=== PATIENT | female | born 1955 | race Caucasian/White ===

== ENCOUNTER 2020-10-04 03:40 | Inpatient (IN) | payer OTHER, SELFPAY ==
[~2020-10-04] VITALS: Ht 165.1 cm; Wt 138.3 kg
[2020-10-04 03:45] VITALS: BP 145/90
--- NOTE | 2020-10-04 03:56 | NUR ---
PT AMBULATED TO ER BED 2
--- NOTE | 2020-10-04 04:00 | NUR ---
RECEIVED PT IN BED 2 WITH C/O PALPITATIONS AND JAW PAIN X A FEW HOURS. WAS AT HOME WHEN COMPLAINT STARTED AND WAS NON PREVOKED. ATTACHED TO CM = ST [id number] WITHOUT ECTOPY. SKIN IS WARM AND DRY
[2020-10-04] MEDS ORDERED: NACL 0.9% 1,000 ML IV ONE (04:25)
[2020-10-04] MEDS ORDERED: ASPIRIN 325 MG TAB PO ONE (04:25)
[2020-10-04] MEDS ORDERED: METOPROLOL 5 MG/5 ML VIAL IVP ONE (04:25)
--- NOTE | 2020-10-04 04:40 | NUR ---
SL RSTABLISHED FOLLOWED BY MEDS ORDERED
[2020-10-04] MEDS ORDERED: DILTIAZEM 25 MG/5 ML VIAL IVP ONE (05:25)
--- NOTE | 2020-10-04 06:30 | NUR ---
COLLECTED BLOOD LABS AND WALKED THEM OVER TO LAB AT THIS TIME.
--- NOTE | 2020-10-04 06:35 | NUR ---
EMT AT BEDSIDE PERFORMING EKG
[2020-10-04 06:44] LABS: BASOPHILS # (AUTO) 0.1 K/uL (0.00-0.22); BASOPHILS % (AUTO) 0.9 % (0.0-2.0); EOSINOPHILS # (AUTO) 0.2 K/uL (0-0.4); EOSINOPHILS % (AUTO) 1.7 % (0.0-4.0); HEMATOCRIT 45.4 % (36-48); HEMOGLOBIN 15.1 g/dL (12.0-16.0); LYMPHOCYTES # (AUTO) 2.9 K/uL (2.5-16.5); LYMPHOCYTES % (AUTO) 21.3 % (20.5-51.1); MEAN CORPUSCULAR HEMOGLOBIN 30 pg (27-31); MEAN CORPUSCULAR HGB CONC 33 g/dL (33-37); MEAN CORPUSCULAR VOLUME 90.7 fL (80-94); MONOCYTES # (AUTO) 0.9 K/uL (0.8-1.0); MONOCYTES % (AUTO) 6.3 % (1.7-9.3); NEUTROPHILS # (AUTO) 9.6 K/uL (1.8-7.7); NEUTROPHILS % (AUTO) 69.8 % (42.2-75.2); PLATELET COUNT (AUTO) 210 K/uL (140-450); RED CELL DISTRIBUTION WIDTH 14.9 % (11.6-13.7); WHITE BLOOD COUNT (AUTO) 13.8 K/uL (4.8-10.8)
--- NOTE | 2020-10-04 06:49 | NUR ---
HR MUCH IMPROVED 100-110
[2020-10-04] MEDS ORDERED: DILTIAZEM 125 MG in DEXTROSE 5% 100 ML IV ONE (07:05)
[2020-10-04 07:08] LABS: ALBUMIN 3.3 g/dL (3.4-5.0); ANION GAP 13.4 (8-16); ASPARTATE AMINOTRANSFERASE 16 U/L (15-37); CARBON DIOXIDE 26.8 mmol/L (21-32); CHLORIDE 105 mmol/L (98-107); CREATININE 0.8 mg/dL (0.6-1.3); GFR ARICAN-AMERICAN 93 mL/min (>90); GLUCOSE 109 mg/dL (74-106); POTASSIUM 4.2 mmol/L (3.5-5.1); SODIUM SERUM 141 mmol/L (136-145); THYROID STIMULATING HORMONE 1.42 uIU/mL (0.34-3.74); TOTAL BILIRUBIN 0.3 mg/dL (0.0-1.0); UREA NITROGEN, BLOOD 19 mg/dL (7-18)
--- NOTE | 2020-10-04 07:20 | NUR ---
REPORT RECEIVED FROM ED HERNANDEZ, TRANSFER OF CARE AT THIS TIME
[2020-10-04] MEDS ORDERED: ONDANSETRON 4 MG/2 ML VIAL IM/IVP PRN (07:35)
[2020-10-04] MEDS ORDERED: ACETAMINOPHEN 325 MG TAB PO PRN (07:35)
[2020-10-04] MEDS ORDERED: HYDROcodone/APAP 7.5/325 MG 1 TAB PO PRN (07:35)
[2020-10-04] MEDS ORDERED: guaiFENesin DM 200/20 MG-10 ML 10 ML UDC PO PRN (07:35)
[2020-10-04] MEDS ORDERED: DOCUSATE SODIUM 100 MG GELCAP PO PRN (07:35)
[2020-10-04] MEDS ORDERED: ZOLPIDEM 5 MG TAB PO PRN (07:35)
[2020-10-04] MEDS ORDERED: POTASSIUM CHLORIDE 10 MEQ TABER PO PRN (07:35)
--- NOTE | 2020-10-04 07:38 | NUR ---
Shanta rojas in [facility] - 10/04/20 at 0738 by [facility] CALLED FOR LUANNE MCKENZIE, STATE THEY WILL BRING IT
[2020-10-04] MEDS: PANTOPRAZOLE 40 MG TABEC PO SCH (08:56)
--- NOTE | 2020-10-04 09:00 | NUR ---
Dr. Puga is evaluating the patient at bedside.
[2020-10-04 09:21] LABS: APPEARANCE,URINE CLEAR (CLEAR); BILIRUBIN,URINE NEGATIVE (NEGATIVE); BLOOD, URINE NEGATIVE (NEGATIVE); COLOR,URINE YELLOW (YELLOW); LEUKOCYTE ESTERASE ,URINE NEGATIVE (NEGATIVE); NITRITE, URINE NEGATIVE (NEGATIVE); PH,URINE 5.5 (5.0-9.0); UGLUCOSE NEGATIVE (NEGATIVE)
[2020-10-04 09:45] LABS: BARBITURATE, URINE NEGATIVE ng/ml (NEG <=200); BENZODIAZEPINE, URINE NEGATIVE ng/mL (NEG <=200); CANNABINOID, URINE POSITIVE ng/mL (NEG <=50); COCAINE, URINE NEGATIVE ng/mL (NEG <=300); OPIATE, URINE NEGATIVE ng/mL (NEG <=2000); PHENCYCLIDINE SCREEN,URINE NEGATIVE ng/mL (NEG <=25)
[2020-10-04] MEDS ORDERED: NITROGLYCERIN 0.4 MG TAB SL PRN (10:15)
[2020-10-04] MEDS: DILTIAZEM 30 MG TAB PO SCH ×3 (10:15→22:02)
--- NOTE | 2020-10-04 10:22 | NUR ---
BP 90/56, HR 80 - CARDIZEM DRIP STOPPED DUE TO PROTOCOL
--- NOTE | 2020-10-04 10:30 | NUR ---
PT ALERT AND AWAKE, BREATHING EVEN AND UNLABORED. NO DISTRESS NOTED.
[2020-10-04 10:52] LABS: PROTHROMBIN TIME 9.6 secs (10.8-13.4)
--- NOTE | 2020-10-04 11:16 | NUR ---
DR MANCUSO MADE AWARE CARDIZEM DRIP STOPPED EARLIER PER PROTOCOL, AND BP REMAINS LOW AT 94/53, HR 115.
--- NOTE | 2020-10-04 11:30 | NUR ---
PER DR JAMEE JAY TO [place] LUANNE MCKENZIE NOW. BP 99/38, HR 114
[2020-10-04 12:20] LABS: CHOL/HDL RATIO 5.6 (1-4.5); FREE T4 (FREE THYROXINE) 0.96 ng/dL (0.76-1.46); MAGNESIUM 2.2 mg/dL (1.8-2.4); PHOSPHORUS 3.9 mg/dL (2.5-4.9)
--- NOTE | 2020-10-04 12:30 | NUR ---
PT ALERT AND AWAKE, BREATHING EVEN AND UNLABORED. NO DISTRESS NOTED.
--- NOTE | 2020-10-04 12:56 | NUR ---
DR MANCUSO NOTIFIED HR IS NOW BACK INTO 130'S, BP 109/68.
--- NOTE | 2020-10-04 14:30 | NUR ---
PT ALERT AND AWAKE, BREATHING EVEN AND UNLABORED. NO DISTRESS NOTED.
--- NOTE | 2020-10-04 14:32 | NUR ---
DR MANCUSO MADE AWARE PT HR REMAINS IN 150'S, STATES TO PAGE DR JOHNSON. DR JOHNSON PAGED
[2020-10-04] MEDS ORDERED: METOPROLOL 5 MG/5 ML VIAL IV PRN (15:40)
--- NOTE | 2020-10-04 15:45 | NUR ---
MEDICATIONS ORDERED STATED THROUGH TELEPHONE ORDER BY DR JOHNSON. WAITING FOR PHARMACY TO VERIFY MEDICATIONS TO EMAR.
[2020-10-04] MEDS ORDERED: DIGOXIN 0.25 MG/ML AMP IV SCH (15:47)
[2020-10-04] MEDS: METOPROLOL 25 MG TAB PO SCH (16:01)
[2020-10-04] MEDS ORDERED: AMIODARONE 150 MG in DEXTROSE 5% 100 ML IV SCH (16:10)
[2020-10-04] MEDS ORDERED: AMIODARONE 450 MG in DEXTROSE 5% 250 ML IV SCH (16:20)
[2020-10-04] MEDS ORDERED: AMIODARONE 150 MG/3 ML VIAL IV ONE (16:24)
--- NOTE | 2020-10-04 16:30 | NUR ---
PT ALERT AND AWAKE, BREATHING EVEN AND UNLABORED. NO DISTRESS NOTED.
[2020-10-04] MEDS ORDERED: CRUSHER, PILL MC ONE (17:36)
[2020-10-04] MEDS: ATORVASTATIN 20 MG TAB PO SCH (17:39)
--- NOTE | 2020-10-04 19:15 | NUR ---
Report received from DAVID Thomson for continuation of care.
--- NOTE | 2020-10-04 19:30 | NUR ---
Pt in bed, locked and in lowest position, hob elevated. VSS. No acute distress noted.
--- NOTE | 2020-10-04 19:30 | NUR ---
SEE AMIODARONE DRIP IV SPREADSHEET FOR UPDATED VITAL SIGNS.
--- NOTE | 2020-10-04 21:00 | NUR ---
Pt ambulated to restroom w/ steady gait.
--- NOTE | 2020-10-04 21:10 | NUR ---
Pt c/o of pain at 20G Right hand. IV removed, catheter intact and site benign. Applied folded 4x4 gauze and tape to stop bleeding. Warm compress applied to pt IV site.
[2020-10-04] MEDS: DIGOXIN 0.25 MG/ML AMP IV SCH (22:02)
--- NOTE | 2020-10-04 22:04 | NUR ---
PER DR. MANCUSO UPGRADE PT STATUS TO ICU DUE TO AMIODORONE DRIP.
--- NOTE | 2020-10-04 22:15 | NUR ---
pt resting in bed, locked and in lowest position, hob elevated, side rail x 2. VSS. no acute distress noted.
--- NOTE | 2020-10-04 23:10 | NUR ---
pt repositioned , vss. no acute distress noted.
--- NOTE | 2020-10-04 23:30 | NUR ---
amiodarone drip decreased per parameters to 0.5mg/hr Addendum: 10/05/20 at 0120 by GABY amiodarone drip decreased per parameters to 0.5mg/min
[2020-10-05] VITALS (22 sets, daily range): BP systolic 86–128; BP diastolic 50–81
--- NOTE | 2020-10-05 00:30 | NUR ---
pt resting in bed, locked and in lowest position ,HOB elevated, side rail x 2 for pt safety. VSS. No acute distress noted.
--- NOTE | 2020-10-05 01:15 | NUR ---
pt ambulated to restroom w/ steady gait.
--- NOTE | 2020-10-05 01:39 | NUR ---
Patient will be admitted to care of Dr. Puga. Admited to ICU. Will go to room ICU Rm 8. Belongings list completed. Report to DAVID Galindo.ETA of transfer to room 10-15 min.
--- NOTE | 2020-10-05 02:00 | NUR ---
PT TRANSFERRED TO ROOM 8 IN ICU . RECEIVING NURSE Millicent BADILLO RN AT BEDSIDE W/ PT.
--- NOTE | 2020-10-05 02:10 | NUR ---
RECEIVED PT FROM ER AT THIS TIME. PT AWAKE, ALERT AND ORIENTED X4, AND COOPERATIVE. ABLE TO AMBULATE INDEPENDENTLY. PUPILS 3MM, PERRL. DENIES PAIN UPON QUESTIONING. DENIES SOB OR CX DISCOMFORT. SB ON MONITOR, HR @ 56 BPM. +S1, S2 UPON AUSCULTATION. AMIODARONE DRIP INFUSING @ 17 MLS/HR. PERIPHERAL IV TO LT WRIST DC'D AT THIS TIME D/T PT C/O IRRITATION TO SITE. NEW IV INITIATED TO LFA, 20 G, SALINE-LOCKED. LUNGS CLEAR THROUGHOUT. ABD SOFT, LARGE, NON-DISTENDED, NON-TENDER. BOWEL SOUNDS ACTIVE X4. PERIPHERAL PULSES PALPABLE BILATERALLY. TURGOR WITHIN 3 SEC. NO EDEMA NOTED. CAP REFILL WITHIN 3 SEC. SNACKS PROVIDED PER PT REQUEST. SAFETY PRECAUTIONS IN PLACE WITH BED LOW AND LOCKED. WILL CONT TO MONITOR FOR CHANGES.
[2020-10-05] MEDS: METOPROLOL 25 MG TAB PO SCH ×3 (04:00→20:31)
[2020-10-05] MEDS: DILTIAZEM 30 MG TAB PO SCH ×3 (04:09→20:31)
[2020-10-05] MEDS: DIGOXIN 0.25 MG/ML AMP IV SCH (04:10)
[2020-10-05 06:22] LABS: BASOPHILS # (AUTO) 0.1 K/uL (0.00-0.22); BASOPHILS % (AUTO) 0.8 % (0.0-2.0); EOSINOPHILS # (AUTO) 0.2 K/uL (0-0.4); HEMATOCRIT 42.6 % (36-48); HEMOGLOBIN 14.1 g/dL (12.0-16.0); LYMPHOCYTES # (AUTO) 3.1 K/uL (2.5-16.5); LYMPHOCYTES % (AUTO) 31.4 % (20.5-51.1); MEAN CORPUSCULAR HEMOGLOBIN 30 pg (27-31); MEAN CORPUSCULAR HGB CONC 33 g/dL (33-37); MEAN CORPUSCULAR VOLUME 90.5 fL (80-94); MONOCYTES # (AUTO) 0.5 K/uL (0.8-1.0); MONOCYTES % (AUTO) 4.8 % (1.7-9.3); PLATELET COUNT (AUTO) 218 K/uL (140-450); RED BLOOD CELL COUNT(AUTO) 4.71 MIL/uL (4.20-5.40); RED CELL DISTRIBUTION WIDTH 14.9 % (11.6-13.7); WHITE BLOOD COUNT (AUTO) 9.8 K/uL (4.8-10.8)
[2020-10-05 06:30] LABS: ANION GAP 12.1 (8-16); CARBON DIOXIDE 25.7 mmol/L (21-32); POTASSIUM 3.8 mmol/L (3.5-5.1)
--- NOTE | 2020-10-05 07:20 | NUR ---
REPORT GIVEN TO DAYSHIFT NURSE, AT WINDOW, FOR CONTINUITY OF CARE. VSS. IV PATENT.
--- NOTE | 2020-10-05 07:25 | NUR ---
RECEIVED REPORT FROM ABY. PT. AWAKE ALERT FOLLOW COMMAND, HEP LOCK ON RT AC , ON ROOM AIR.
--- NOTE | 2020-10-05 07:27 | NUR ---
LEFT MESSAGE FOR DR MANCUSO R/T PTS BRADYCARDIA. AMIODARONE DRIP HELD. AWAITING CALL BACK, ONCOMING SHIFT AWARE.
--- NOTE | 2020-10-05 08:00 | NUR ---
OOB TOBATH ROOM.
[2020-10-05] MEDS: ECOTRIN 81 MG TABEC PO SCH (08:55)
[2020-10-05] MEDS: PANTOPRAZOLE 40 MG TABEC PO SCH (08:55)
[2020-10-05] MEDS: lisinopriL 5 MG TAB PO SCH (08:55)
--- NOTE | 2020-10-05 09:30 | NUR ---
SEEN BY JAMEE HARTLEY ORDER RECEIVED.
--- NOTE | 2020-10-05 10:08 | NUR ---
PATIENT HAS BEEN SCREENED AND CATEGORIZED HIGH NUTRITION RISK. PATIENT WILL BE SEEN WITHIN 1-2 DAYS OF ADMISSION. 10/06/[address]
--- NOTE | 2020-10-05 14:09 | NUR ---
DC PLANNING: CALLED [facility] SPOKE WITH ARIS NOTIFIED HER THAT PATIENT IS STABLE FOR TRANSFER AND UPDATED HER CLINICAL. PER ARIS THEY ARE AT FULL CAPACITY AND NOT ACCEPTING ANY INPATIENT TRANSFER AT THIS TIME AND TO FAX ALL CLINICALS . FAXED CLINICALS TO [phone] . MARTINEZ TO FOLLOW Addendum: 10/06/20 at 1230 by Leslye Holly CM CONTACTED MARTINEZ DE LUNA OF [facility], ASKING IF THE PATIENT WILL BE DC'D. INFORMED HER THAT THE PATIENT JUST GOTDOWNGRADED FROM ICU AND POSSIBLE DC LATER TODAY OR TOMORROW. SHE STATED TO LET HER KNOW ONCE THERE IS ANY DC NEEDS. WILL FOLLOW UP. Addendum: 10/06/20 at 123 by Leslye Holly CM PHONE NUMBER FOR MARTINEZ DE LUNA - [phone].
[2020-10-05] MEDS: ATORVASTATIN 20 MG TAB PO SCH (17:00)
--- NOTE | 2020-10-05 17:00 | NUR ---
PATIENT REFUSE LIPITOR SHE SAID SHE HAS TERRIBLE MUSCLE WHEN SHE TAKE THEM.
--- NOTE | 2020-10-05 18:00 | NUR ---
CARDIAC DIET TAKEN WITH OUT NOUSEA AND VOMIT.
--- NOTE | 2020-10-05 19:30 | NUR ---
CONDITION STABLE REPORT GIVE TO SHAWN HERNANDEZ.
--- NOTE | 2020-10-05 20:00 | NUR ---
REPORT OBTAINED FROM MOLLY ROCHA RN. PATIENT IS AAOX4, SR ON THE MONITOR, SALINE LOCK ON RAC PATENT AND INTACT, ON ROOM AIR, RESPIRATIONS NORMAL, AMBULATES TO THE BATHROOM, DENIES PAIN, CALL LIGHT WITHIN REACH.
--- NOTE | 2020-10-05 22:00 | NUR ---
PATIENT IN BED, SR ON THE MONITOR, CALL LIGHT WITHIN REACH, DENIES PAIN.
[2020-10-06] VITALS (12 sets, daily range): BP systolic 79–141; BP diastolic 48–68
--- NOTE | 2020-10-06 | NUR ---
ASLEEP, CALL LIGHT WITHIN REACH, NO RESPIRATORY DISTRESS.
--- NOTE | 2020-10-06 02:00 | NUR ---
PATIENT'S HR FLUCTUATING FROM 58-63, AWAKE AT THIS TIME, WATER GIVEN, DENIES PAIN.
--- NOTE | 2020-10-06 04:00 | NUR ---
SLEEPING, CALL LIGHT WITHIN REACH, DENIES PAIN.
[2020-10-06] MEDS: DILTIAZEM 30 MG TAB PO SCH (05:00)
--- NOTE | 2020-10-06 06:23 | NUR ---
AM CARE PROVIDED, HR FLUCTUATES FROM HIGH 50'S TO 60'S, DENIES PAIN.
[2020-10-06 06:47] LABS: ANION GAP 16.6 (8-16); CARBON DIOXIDE 24.1 mmol/L (21-32); CREATININE 0.6 mg/dL (0.6-1.3); POTASSIUM 5.7 mmol/L (3.5-5.1)
[2020-10-06] MEDS: ECOTRIN 81 MG TABEC PO SCH (08:42)
[2020-10-06] MEDS: PANTOPRAZOLE 40 MG TABEC PO SCH (08:43)
[2020-10-06] MEDS: METOPROLOL 25 MG TAB PO SCH ×2 (09:00→21:18)
[2020-10-06] MEDS: lisinopriL 5 MG TAB PO SCH (09:00)
[2020-10-06] MEDS ORDERED: SODIUM ZIRCONIUM CYCLOSILICATE 10 GM POWD.PACK PO SCH (10:30)
[2020-10-06] MEDS ORDERED: CALCIUM GLUCONATE 10% 1,000 MG in NACL 0.9% 50 ML IV SCH (11:00)
[2020-10-06 12:11] LABS: BASOPHILS # (AUTO) 0.1 K/uL (0.00-0.22); BASOPHILS % (AUTO) 1.1 % (0.0-2.0); EOSINOPHILS # (AUTO) 0.2 K/uL (0-0.4); EOSINOPHILS % (AUTO) 2.3 % (0.0-4.0); HEMATOCRIT 41.7 % (36-48); HEMOGLOBIN 13.8 g/dL (12.0-16.0); LYMPHOCYTES # (AUTO) 2.3 K/uL (2.5-16.5); LYMPHOCYTES % (AUTO) 29.3 % (20.5-51.1); MEAN CORPUSCULAR HEMOGLOBIN 30 pg (27-31); MEAN CORPUSCULAR HGB CONC 33 g/dL (33-37); MEAN CORPUSCULAR VOLUME 90.6 fL (80-94); MONOCYTES # (AUTO) 0.6 K/uL (0.8-1.0); MONOCYTES % (AUTO) 8.1 % (1.7-9.3); NEUTROPHILS # (AUTO) 4.6 K/uL (1.8-7.7); NEUTROPHILS % (AUTO) 59.2 % (42.2-75.2); PLATELET COUNT (AUTO) 205 K/uL (140-450); RED CELL DISTRIBUTION WIDTH 14.8 % (11.6-13.7); WHITE BLOOD COUNT (AUTO) 7.8 K/uL (4.8-10.8)
--- NOTE | 2020-10-06 14:20 | NUR ---
TELEPHONE REPORT GIVEN TO TELE NURSE JANELLE HERNANDEZ
--- NOTE | 2020-10-06 15:55 | NUR ---
10/06/2020 RD INITIAL ASSESSMENT COMPLETED PLEASE REFER TO NUTRITION ASSESSMENT UNDER CARE ACTIVITY FOR ESTIMATED NUTRITIONAL NEEDS. CONTINUE CURRENT CARDIAC DIET ORDERED RD TO FOLLOW-UP IN 3-5 DAYS PATIENT IS MODERATE RISK. ERICKA KING RD
--- NOTE | 2020-10-06 16:40 | NUR ---
PT TRANSFERRED TO TELE ROOM 123B. PT IN STABLE CONDITION.
--- NOTE | 2020-10-06 19:23 | NUR ---
GAVE REPORT TO WEED CONTROL INSPECTOR NURSE FOR CONTINUITY OF CARE. PATIENT IN STABLE CONDITION.
[2020-10-07 00:01] VITALS: BP 128/62
--- NOTE | 2020-10-07 01:27 | NUR ---
RECIEVED PATIENT IN BED, DENIED CP, ON ROOM AIR, NO DISTRESS NOTED, PM MEDS GIVEN. VSS, WILL CONTINUE TO MONITOR.
[2020-10-07 05:32] LABS: BASOPHILS # (AUTO) 0.1 K/uL (0.00-0.22); BASOPHILS % (AUTO) 0.9 % (0.0-2.0); EOSINOPHILS # (AUTO) 0.3 K/uL (0-0.4); EOSINOPHILS % (AUTO) 3.1 % (0.0-4.0); HEMATOCRIT 41.8 % (36-48); LYMPHOCYTES # (AUTO) 3.1 K/uL (2.5-16.5); LYMPHOCYTES % (AUTO) 36.4 % (20.5-51.1); MEAN CORPUSCULAR HEMOGLOBIN 30 pg (27-31); MEAN CORPUSCULAR HGB CONC 34 g/dL (33-37); MEAN CORPUSCULAR VOLUME 90.3 fL (80-94); MONOCYTES # (AUTO) 0.6 K/uL (0.8-1.0); MONOCYTES % (AUTO) 6.7 % (1.7-9.3); NEUTROPHILS # (AUTO) 4.5 K/uL (1.8-7.7); NEUTROPHILS % (AUTO) 52.9 % (42.2-75.2); PLATELET COUNT (AUTO) 213 K/uL (140-450); RED BLOOD CELL COUNT(AUTO) 4.63 MIL/uL (4.20-5.40); RED CELL DISTRIBUTION WIDTH 14.7 % (11.6-13.7); WHITE BLOOD COUNT (AUTO) 8.5 K/uL (4.8-10.8)
[2020-10-07 05:56] LABS: CARBON DIOXIDE 29.2 mmol/L (21-32); CREATININE 0.9 mg/dL (0.6-1.3); POTASSIUM 4.2 mmol/L (3.5-5.1)
[2020-10-07 06:00] VITALS: BP 109/57
[2020-10-07 08:00] VITALS: BP 122/52
[2020-10-07] MEDS: ECOTRIN 81 MG TABEC PO SCH (08:58)
[2020-10-07] MEDS: PANTOPRAZOLE 40 MG TABEC PO SCH (08:58)
[2020-10-07] MEDS: METOPROLOL 25 MG TAB PO SCH (08:59)
--- NOTE | 2020-10-07 09:01 | NUR ---
SCHEDULED MEDICATIONS GIVEN, EDUCATION PROVIDED. METOPROLOL HOLD FOR HR 58. DENIES PAIN OR DISCOMFORT. SAFETY MEASURES IN PLACE. WILL CONTINUE TO MONITOR.
[2020-10-07] MEDS ORDERED: ASPI-1856 PO (10:38)
[2020-10-07] MEDS ORDERED: METO25TA PO (10:38)
--- NOTE | 2020-10-07 11:01 | NUR ---
INFORMED PATIENT THAT SHE IS GOING HOME TODAY, PATIENT STATED THAT SHE WAS HAPPY ABOUT IT. NO ACUTE DISTRESS NOTED.
[2020-10-07] MEDS ORDERED: FLU VACCINE QS2020-21 0.5 ML SYR IMVAC PRN (11:25)
--- NOTE | 2020-10-07 11:40 | NUR ---
FLU VACCINE GIVEN, PATIENT TOLERATED WELL. DISCHARGE INSTRUCTIONS PROVIDED. VERBALIZED UNDERSTANDING.
--- NOTE | 2020-10-07 12:00 | NUR ---
DISCHARGE PAPER SIGNED. DISCHARGE PROTOCOL FOLLOWED. WALKED PATIENT OUT OF THE HOSPITAL, PATIENT IN STABLE CONDITION.
== END 2020-10-07 12:00 | disposition home or self-care (01) | DRG 309 ==
LOC: MED 03:40 → MTU 10:11 → MIC 23:49 → MTU 10-06 16:42
PROVIDERS: ADMIT Family Medicine; ATTEND Family Medicine
DX: I48.92 Unspecified atrial flutter (principal); E44.1 Mild protein-calorie malnutrition; Z68.43 Body mass index [BMI] 50.0-59.9, adult; D72.829 Elevated white blood cell count, unspecified; E86.0 Dehydration; Z96.653 Presence of artificial knee joint, bilateral; E66.9 Obesity, unspecified; E87.6 Hypokalemia; Z20.828 Contact with and (suspected) exposure to other viral communicable diseases; Z90.49 Acquired absence of other specified parts of digestive tract; Z90.710 Acquired absence of both cervix and uterus; Z82.49 Family history of ischemic heart disease and other diseases of the circulatory system
CPT/HCPCS: 36415; 71045; 80048; 80053; 80305; 81003; 82150; 83036; 83690; 83735; 83880; 84100; 84436; 84439; 84443; 84479; 84484; 85025; 85610; 85730; 93005; 96361; 96365; 96375; 99291; 99292; G0482; J0282; J0610; J1160; J3490; J7060

== ENCOUNTER 2020-10-26 06:25 | Inpatient (IN) | payer OTHER, SELFPAY ==
[~2020-10-26] VITALS: Ht 165.1 cm; Wt 135.2 kg
[~2020-10-26 06:25] MED LIST: ASPI-1856 PO; METO25TA PO
[2020-10-26 06:29] VITALS: BP 149/79
[2020-10-26] MEDS ORDERED: ONDANSETRON 4 MG/2 ML VIAL IVP ONE (07:35)
[2020-10-26] MEDS ORDERED: KETOROLAC 15 MG/ML VIAL IVP ONE (07:35)
[2020-10-26 08:26] LABS: BASOPHILS # (AUTO) 0.1 K/uL (0.00-0.22); BASOPHILS % (AUTO) 0.5 % (0.0-2.0); EOSINOPHILS # (AUTO) 0.2 K/uL (0-0.4); EOSINOPHILS % (AUTO) 1.7 % (0.0-4.0); HEMOGLOBIN 14.5 g/dL (12.0-16.0); LYMPHOCYTES # (AUTO) 2.1 K/uL (2.5-16.5); LYMPHOCYTES % (AUTO) 16.6 % (20.5-51.1); MEAN CORPUSCULAR HEMOGLOBIN 30 pg (27-31); MEAN CORPUSCULAR HGB CONC 33 g/dL (33-37); MEAN CORPUSCULAR VOLUME 90.7 fL (80-94); MONOCYTES # (AUTO) 0.8 K/uL (0.8-1.0); MONOCYTES % (AUTO) 6.2 % (1.7-9.3); NEUTROPHILS # (AUTO) 9.7 K/uL (1.8-7.7); PLATELET COUNT (AUTO) 217 K/uL (140-450); RED BLOOD CELL COUNT(AUTO) 4.86 MIL/uL (4.20-5.40); RED CELL DISTRIBUTION WIDTH 14.8 % (11.6-13.7); WHITE BLOOD COUNT (AUTO) 12.9 K/uL (4.8-10.8)
[2020-10-26] MEDS ORDERED: metroNIDAZOLE 500 MG/NS PREMIX 100 ML IV ONE (09:20)
[2020-10-26] MEDS ORDERED: PANT40EC PO (09:36)
[2020-10-26] MEDS ORDERED: ORE25 PO (09:36)
[2020-10-26] MEDS ORDERED: ceFAZolin 1,000 MG VIAL ONE (09:37)
[2020-10-26 09:49] LABS: ALBUMIN 3.4 g/dL (3.4-5.0); CREATININE 0.8 mg/dL (0.6-1.3); TOTAL BILIRUBIN 0.4 mg/dL (0.0-1.0)
[2020-10-26] MEDS ORDERED: ONDANSETRON 4 MG/2 ML VIAL IVP PRN (10:25)
[2020-10-26] MEDS ORDERED: ACETAMINOPHEN 325 MG TAB PO PRN (10:25)
[2020-10-26] MEDS ORDERED: MORPHINE SULFATE 2 MG/ML SYR IVP PRN (10:25)
[2020-10-26] MEDS ORDERED: ZOLPIDEM 5 MG TAB PO PRN (10:25)
[2020-10-26] MEDS ORDERED: LORazepam 2 MG/ML VIAL IM/IVP PRN (10:25)
[2020-10-26] MEDS ORDERED: DOCUSATE SODIUM 100 MG GELCAP PO PRN (10:25)
[2020-10-26 11:20] VITALS: BP 134/68
[2020-10-26 11:32] LABS: PROTHROMBIN TIME 9.4 secs (10.8-13.4)
[2020-10-26 11:46] LABS: CHOL/HDL RATIO 5.5 (1-4.5); FREE T4 (FREE THYROXINE) 0.98 ng/dL (0.76-1.46); MAGNESIUM 2.3 mg/dL (1.8-2.4); THYROID STIMULATING HORMONE 1.71 uIU/mL (0.34-3.74)
[2020-10-26] MEDS: NACL 0.9% 1,000 ML IV SCH (12:18)
[2020-10-26 15:05] LABS: APPEARANCE,URINE CLOUDY (CLEAR); BILIRUBIN,URINE NEGATIVE (NEGATIVE); BLOOD, URINE NEGATIVE (NEGATIVE); COLOR,URINE YELLOW (YELLOW); LEUKOCYTE ESTERASE ,URINE NEGATIVE (NEGATIVE); NITRITE, URINE NEGATIVE (NEGATIVE); UGLUCOSE NEGATIVE (NEGATIVE)
[2020-10-26 15:17] LABS: BARBITURATE, URINE NEGATIVE ng/ml (NEG <=200); BENZODIAZEPINE, URINE NEGATIVE ng/mL (NEG <=200); CANNABINOID, URINE POSITIVE ng/mL (NEG <=50); COCAINE, URINE NEGATIVE ng/mL (NEG <=300); OPIATE, URINE NEGATIVE ng/mL (NEG <=2000); PHENCYCLIDINE SCREEN,URINE NEGATIVE ng/mL (NEG <=25)
[2020-10-26 16:00] VITALS: BP 130/68
[2020-10-26] MEDS: cefTRIAXone 2,000 MG in DEXTROSE 5% 100 ML IV SCH (16:00)
[2020-10-26] MEDS: HYDROcodone/APAP 5/325 MG 1 TAB TAB PO PRN (17:44)
[2020-10-26 20:00] VITALS: BP 116/50
[2020-10-26] MEDS: POLYETHYLENE GLYCOL 17 GM/PKT PO SCH (20:42)
[2020-10-26] MEDS: metroNIDAZOLE 500 MG/NS PREMIX 100 ML IV SCH (20:42)
[2020-10-26] MEDS: METOPROLOL 25 MG TAB PO SCH (20:42)
[2020-10-27] MEDS: NACL 0.9% 1,000 ML IV SCH (00:10)
[2020-10-27] MEDS: HYDROcodone/APAP 5/325 MG 1 TAB TAB PO PRN ×2 (00:15→09:20)
[2020-10-27 04:00] VITALS: BP 104/54
[2020-10-27] MEDS: metroNIDAZOLE 500 MG/NS PREMIX 100 ML IV SCH ×3 (04:51→20:57)
[2020-10-27 06:34] LABS: BASOPHILS # (AUTO) 0.1 K/uL (0.00-0.22); BASOPHILS % (AUTO) 0.9 % (0.0-2.0); EOSINOPHILS # (AUTO) 0.2 K/uL (0-0.4); EOSINOPHILS % (AUTO) 2.3 % (0.0-4.0); HEMATOCRIT 38.4 % (36-48); HEMOGLOBIN 12.5 g/dL (12.0-16.0); LYMPHOCYTES # (AUTO) 2.1 K/uL (2.5-16.5); LYMPHOCYTES % (AUTO) 29.2 % (20.5-51.1); MEAN CORPUSCULAR HEMOGLOBIN 30 pg (27-31); MEAN CORPUSCULAR HGB CONC 33 g/dL (33-37); MEAN CORPUSCULAR VOLUME 91.6 fL (80-94); MONOCYTES # (AUTO) 0.6 K/uL (0.8-1.0); MONOCYTES % (AUTO) 7.9 % (1.7-9.3); NEUTROPHILS # (AUTO) 4.4 K/uL (1.8-7.7); NEUTROPHILS % (AUTO) 59.7 % (42.2-75.2); PLATELET COUNT (AUTO) 190 K/uL (140-450); RED BLOOD CELL COUNT(AUTO) 4.19 MIL/uL (4.20-5.40); RED CELL DISTRIBUTION WIDTH 14.6 % (11.6-13.7); WHITE BLOOD COUNT (AUTO) 7.3 K/uL (4.8-10.8)
[2020-10-27 07:14] LABS: MAGNESIUM 2.2 mg/dL (1.8-2.4); PHOSPHORUS 4.1 mg/dL (2.5-4.9)
[2020-10-27 07:17] LABS: ANION GAP 10.7 (8-16); CARBON DIOXIDE 30.3 mmol/L (21-32); CREATININE 0.8 mg/dL (0.6-1.3)
[2020-10-27 08:00] VITALS: BP 112/50
[2020-10-27] MEDS: METOPROLOL 25 MG TAB PO SCH ×2 (09:00→20:57)
[2020-10-27] MEDS: hydroCHLOROthiazide 25 MG TAB PO SCH (09:19)
[2020-10-27] MEDS: PANTOPRAZOLE 40 MG TABEC PO SCH (09:20)
[2020-10-27] MEDS: ECOTRIN 81 MG TABEC PO SCH (09:20)
[2020-10-27] MEDS: POLYETHYLENE GLYCOL 17 GM/PKT PO SCH ×2 (09:20→11:30)
[2020-10-27] MEDS: cefTRIAXone 2,000 MG in DEXTROSE 5% 100 ML IV SCH (15:39)
[2020-10-27 16:00] VITALS: BP 129/71
[2020-10-27 20:00] VITALS: BP 120/59
[2020-10-28] VITALS: BP 115/65
[2020-10-28] MEDS: HYDROcodone/APAP 5/325 MG 1 TAB TAB PO PRN ×2 (00:32→08:01)
[2020-10-28 04:00] VITALS: BP 118/62
[2020-10-28] MEDS: metroNIDAZOLE 500 MG/NS PREMIX 100 ML IV SCH ×2 (04:56→13:00)
[2020-10-28 06:32] LABS: BASOPHILS % (AUTO) 0.6 % (0.0-2.0); EOSINOPHILS # (AUTO) 0.2 K/uL (0-0.4); EOSINOPHILS % (AUTO) 2.5 % (0.0-4.0); HEMOGLOBIN 12.5 g/dL (12.0-16.0); LYMPHOCYTES # (AUTO) 2.8 K/uL (2.5-16.5); LYMPHOCYTES % (AUTO) 34.4 % (20.5-51.1); MEAN CORPUSCULAR HEMOGLOBIN 30 pg (27-31); MEAN CORPUSCULAR HGB CONC 33 g/dL (33-37); MEAN CORPUSCULAR VOLUME 91.2 fL (80-94); MONOCYTES # (AUTO) 0.6 K/uL (0.8-1.0); MONOCYTES % (AUTO) 7.4 % (1.7-9.3); NEUTROPHILS # (AUTO) 4.5 K/uL (1.8-7.7); NEUTROPHILS % (AUTO) 55.1 % (42.2-75.2); PLATELET COUNT (AUTO) 202 K/uL (140-450); RED BLOOD CELL COUNT(AUTO) 4.17 MIL/uL (4.20-5.40); RED CELL DISTRIBUTION WIDTH 14.6 % (11.6-13.7); WHITE BLOOD COUNT (AUTO) 8.1 K/uL (4.8-10.8)
[2020-10-28 06:59] LABS: ANION GAP 9.6 (8-16); CARBON DIOXIDE 31.2 mmol/L (21-32); CREATININE 0.9 mg/dL (0.6-1.3); POTASSIUM 3.8 mmol/L (3.5-5.1)
[2020-10-28] MEDS: ECOTRIN 81 MG TABEC PO SCH (09:51)
[2020-10-28] MEDS: POLYETHYLENE GLYCOL 17 GM/PKT PO SCH (09:51)
[2020-10-28] MEDS: METOPROLOL 25 MG TAB PO SCH (09:51)
[2020-10-28] MEDS: hydroCHLOROthiazide 25 MG TAB PO SCH (09:52)
[2020-10-28] MEDS: PANTOPRAZOLE 40 MG TABEC PO SCH (09:52)
[2020-10-28 10:38] VITALS: BP 109/51
[2020-10-28] MEDS ORDERED: PSYL0.4C2 PO (11:16)
[2020-10-28] MEDS ORDERED: ACET-5629 PO (11:16)
[2020-10-28] MEDS: cefTRIAXone 2,000 MG in DEXTROSE 5% 100 ML IV SCH (13:13)
[2020-10-28] MEDS ORDERED: CEPH250C16 PO (13:18)
== END 2020-10-28 14:10 | disposition home or self-care (01) | DRG 872 ==
LOC: MED 06:25 → MMU 10:26
PROVIDERS: ADMIT Family Medicine; ATTEND Family Medicine
DX: A41.9 Sepsis, unspecified organism (principal); K57.92 Diverticulitis of intestine, part unspecified, without perforation or abscess without bleeding; Z68.42 Body mass index [BMI] 45.0-49.9, adult; Z20.822 Contact with and (suspected) exposure to COVID-19; Z90.710 Acquired absence of both cervix and uterus; Z90.49 Acquired absence of other specified parts of digestive tract; E66.9 Obesity, unspecified; F12.90 Cannabis use, unspecified, uncomplicated; I48.91 Unspecified atrial fibrillation; Z96.653 Presence of artificial knee joint, bilateral; E78.00 Pure hypercholesterolemia, unspecified; G89.29 Other chronic pain; K21.9 Gastro-esophageal reflux disease without esophagitis; E78.5 Hyperlipidemia, unspecified; E86.0 Dehydration
CPT/HCPCS: 36415; 71045; 80048; 80053; 80305; 81003; 82150; 83036; 83605; 83690; 83735; 83880; 84100; 84439; 84443; 84484; 85025; 85610; 85730; 87040; 87081; 96365; 96367; 96375; 99285; J0690; J0696; J1885; J2270; J2405; J3490; J7030; J7060